=== PATIENT | male | born 1985 | race Caucasian/White ===

== ENCOUNTER 2021-11-15 10:35 | Emergency (ER) | payer MEDICAID ==
[~2021-11-15] VITALS: Ht 175.3 cm; Wt 73.0 kg
[2021-11-15] MEDS ORDERED: TETRACAINE 0.5% OPHTH DROPS 4ML BOTHEYE ONE (11:15)
[2021-11-15 12:00] VITALS: BP 143/89
== END 2021-11-15 12:00 | disposition home or self-care (01) ==
LOC: ER 10:35
DX: T65.893A Toxic effect of other specified substances, assault, initial encounter (principal); H10.213 Acute toxic conjunctivitis, bilateral; Y92.480 Sidewalk as the place of occurrence of the external cause
CPT/HCPCS: 99283